=== PATIENT | female | born 1995 | race Caucasian/White ===

== ENCOUNTER 2017-10-28 12:01 | Emergency (ER) | payer MEDICAID, OTHER ==
[~2017-10-28] VITALS: Wt 59.0 kg
[2017-10-28] MEDS ORDERED: EMTR1TAB11 PO (15:53)
[2017-10-28] MEDS ORDERED: DOLU50TA PO (15:53)
--- NOTE | 2017-10-28 19:23 | ERD ---
ER Documentation Chief Complaint Chief Complaint NEEDLESTICK AT WORK HPI This is a 22-year-old female who presents the emergency department today for further evaluation after being stuck by a needle at work. 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 was cleaning up some of the patient's materials after a procedure and she stuck herself on her index finger. Denies any fevers or chills. She is unsure as to the patient's health status to who she was providing care. ROS All systems reviewed and are negative except as per history of present illness. Medications Home Meds Active Scripts Dolutegravir Sodium (Tivicay) 50 Mg Tablet, 50 MG PO DAILY for 30 Days, TAB Prov:ANA LUISA GROSSMAN PA-C 10/28/17 Emtricitabine-Tenofovir* (Truvada*) 200-300 Mg Tablet, 1 TAB PO DAILY for 30 Days, TAB Prov:ANA LUISA GROSSMAN PA-C 10/28/17 Allergies Allergies: Coded Allergies: No Known Allergy (Unverified , 10/28/17) PMhx/Soc Medical and Surgical Hx: pt denies Medical Hx, pt denies Surgical Hx Hx Alcohol Use: Yes (occasionally) Hx Substance Use: No Hx Tobacco Use: No Smoking Status: Never smoker Physical Exam Vitals Vital Signs Date Time Temp Pulse Resp B/P Pulse Ox O2 Delivery O2 Flow Rate FiO2 10/28/17 12:17 98.7 94 17 131/67 100 Physical Exam Const: NAD Head: Atraumatic Eyes: Normal Conjunctiva ENT: Normal External Ears, Nose and Mouth. Neck: Full range of motion..~ No meningismus. Resp: Clear to auscultation bilaterally Cardio: Regular rate and rhythm, no murmurs Skin: Very Small puncture wound right hand index finger t: No cyanosis, or edema. 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 On physical exam patient had a very small evidence of a needlestick on her right index finger that was almost not visible. I did obtain laboratory workup for the patient for hepatitis and HIV. Plan the risks and benefits of HIV prophylaxis medication and patient elected to be treated for HIV prophylaxis and was given a prescription for Truvada and to be K. She was instructed to take the medication as prescribed until she was able to get laboratory workup or find out the health status of the patient that she had been treating. Patient understood. I also explained to the patient that she may follow up with medical records in the next 48-72 hours for information on her lab results. Patient is reliable and indicated that she would follow-up on that. At this time patient is afebrile and otherwise well-appearing. She has no other symptoms. Did not feel she requires further workup or evaluation at this time. At this time the patient is stable for discharge and outpatient management. Patient should follow up with their PCP in the next 1-2 days. They may return to the emergency department sooner for any persistent or worsening of symptoms. Patient understood and agreed with the plan. Discussed the patient with Dr. De Jesus and he is in agreement with the plan. Departure Diagnosis: Primary Impression: Needlestick injury accident Encounter type: initial encounter Qualified Code: W27.3XXA - Needlestick injury accident, initial encounter Condition: Fair Patient Instructions: Standard Precautions: [place] and [place] Referrals: your PCP Additional Instructions: Call your primary care doctor TOMORROW for an appointment during the next 1-2 days.See the doctor sooner or return here if your condition worsens before your appointment time. Go to Medical records in 2-3 days for your results. Take HIV prophylaxis medication as prescribed until results return ANA LUISA GROSSMAN PA-C Oct 28, 2017 19:23
== END 2017-10-28 16:04 | disposition home or self-care (01) ==
LOC: FTE 12:01
DX: S61.230A Puncture wound without foreign body of right index finger without damage to nail, initial encounter (principal); W27.3XXA Contact with needle (sewing), initial encounter; Y92.239 Unspecified place in hospital as the place of occurrence of the external cause
CPT/HCPCS: 36415; 86703; 86706; 86803; 87340; Z7502; 99284